=== PATIENT | female | born 1980 | race Caucasian/White ===

== ENCOUNTER 2019-07-03 15:26 | Emergency (ER) | payer MEDICAID ==
[2019-07-03] MEDS ORDERED: IV NORMAL SALINE 1,000ML 1,000 ML IV ONE (16:15)
[2019-07-03] MEDS ORDERED: ONDANSETRON PF 4 MG/2 ML VIAL. IV ONE (16:30)
[2019-07-03 16:47] VITALS: BP 125/82
[2019-07-03 17:44] LABS: BACTERIA,URINE FEW /HPF (0-FEW); BILIRUBIN,URINE NEG (NEG); CLARITY,URINE HAZY; COLOR,URINE YELLOW; GLUCOSE,URINE NEG (NEG); NITRITE,URINE NEG (NEG); RBC,URINE RARE /HPF (0-2); SQUAMOUS EPITHELIAL CELL,UR OCC /LPF; UROBILINOGEN,URINE 1 mg/dL (0.2 mg/dL); WBC,URINE OCC /HPF (0-4)
--- NOTE | 2019-07-03 17:56 | PHYS DOC ---
Past History Past Medical History: No Pertinent History (WENDY GAMBLE MD) Past Surgical History: Tubal ligation, Other Additional Past Surgical Histo: Lithotripsy (WENDY GAMBLE MD) Alcohol Use: None Drug Use: Marijuana (WENDY GAMBLE MD) Adult General Chief Complaint Chief Complaint: ABDOMINAL PAIN HPI HPI Patient is a 38-year-old female with a history of tubal ligation on Celexa hydroxyzine for anxiety presenting with chief complaint of 4 days of right lower abdominal pain radiates to the right flank she's had kidney stones before she's had 3 stones and had to be removed surgically she tells me. She is having dysuria as well as urgency she is also worried about her possible appendix she has never had that taken out no fevers that she knows of she has had nausea no definite vomiting pain is getting worse and worse since dull and pressure and also sharp radiating to the back (WENDY GAMBLE MD) Review of Systems Review of Systems Constitutional: Denies fever or chills [] Eyes: Denies change in visual acuity, redness, or eye pain [] HENT: Denies nasal congestion or sore throat [] Respiratory: Denies cough or shortness of breath [] Cardiovascular: No additional information not addressed in HPI [] GI: Denies abdominal pain, nausea, vomiting, bloody stools or diarrhea [] : Denies dysuria or hematuria [] Musculoskeletal: Denies back pain or joint pain [] Integument: Denies rash or skin lesions [] Neurologic: Denies headache, focal weakness or sensory changes [] Endocrine: Denies polyuria or polydipsia [] All other systems were reviewed and found to be within normal limits, except as documented in this note. (WENDY GAMBLE MD) Current Medications Current Medications Current Medications Medications (Trade) Dose Ordered Sig/Seema Start Time Stop Time Status Last Admin Dose Admin Fentanyl Citrate (Fentanyl 2ml Vial) 50 mcg 1X ONCE 07/03/19 16:30 07/03/19 16:31 DC 07/03/19 16:35 50 MCG Ondansetron HCl (Zofran) 4 mg 1X ONCE 07/03/19 16:30 07/03/19 16:31 DC 07/03/19 16:35 4 MG Sodium Chloride 1,000 ml @ 1,000 mls/hr 1X ONCE 07/03/19 16:15 07/03/19 17:14 DC 07/03/19 16:15 1,000 MLS/HR (WENDY GAMBLE MD) Allergies Allergies Allergies Coded Allergies Type Severity Reaction Last Updated Verified No Known Drug Allergies 07/03/19 No (WENDY GAMBLE MD) Physical Exam Physical Exam Constitutional: Well developed, well nourished, no acute distress, non-toxic appearance. [] HENT: Normocephalic, atraumatic, bilateral external ears normal, oropharynx moist, no oral exudates, nose normal. [] Eyes: PERRLA, EOMI, conjunctiva normal, no discharge. [] Neck: Normal range of motion, no tenderness, supple, no stridor. [] Cardiovascular:Heart rate regular rhythm, no murmur [] Lungs & Thorax: Bilateral breath sounds clear to auscultation [] Abdomen: Bowel sounds normal, soft, rlq tenderness wtih some mild right cva ttp, no masses, no pulsatile masses. [] Skin: Warm, dry, no erythema, no rash. Back: No tenderness, Extremities: No tenderness, no cyanosis, no clubbing, ROM intact, no edema. [] Neurologic: Alert and oriented X 3, normal motor function, normal sensory function, no focal deficits noted. [] Psychologic: Affect normal, judgement normal, mood normal. [] (WENDY GAMBLE MD) Current Patient Data Vital Signs Vital Signs Date Time Temp Pulse Resp B/P (MAP) Pulse Ox O2 Delivery O2 Flow Rate FiO2 07/03/19 16:47 97.4 77 16 99 Room Air Lab Results Laboratory Tests Test 07/03/19 17:06 Urine Collection Type Unknown Urine Color Yellow Urine Clarity Hazy Urine pH 6.5 Urine Specific [place] 1.020 Urine Protein Neg (NEG-TRACE) Urine Glucose (UA) Neg mg/dL (NEG) Urine Ketones (Stick) Neg mg/dL (NEG) Urine Blood Neg (NEG) Urine Nitrite Neg (NEG) Urine Bilirubin Neg (NEG) Urine Urobilinogen Dipstick 1 mg/dL (0.2 mg/dL) Urine Leukocyte Esterase Neg (NEG) Urine RBC Rare /HPF (0-2) Urine WBC Occ /HPF (0-4) Urine Squamous Epithelial Cells Occ /LPF Urine Bacteria Few /HPF (0-FEW) Urine Mucus Slight /LPF (WENDY GAMBLE MD) EKG EKG [] (WENDY GAMBLE MD) Radiology/Procedures Radiology/Procedures [] (WENDY GAMBLE MD) Radiology/Procedures PROCEDURE: CT ABD PELV W/ORAL&IV CONTRAST CT abdomen pelvis with contrast dated 07/03/2019. No comparison available. Clinical data indication: Right lower quadrant pain. TECHNIQUE: Contiguous axial imaging of the abdomen and pelvis performed after the administration of 75 cc Omnipaque 300. One or more of the following individualized dose reduction techniques were utilized for this examination: 1. Automated exposure control 2. Adjustment of the mA and/or kV according to patient size 3. Use of iterative reconstruction technique. FINDINGS: Limited images of lung bases are clear. Heart size within normal limits. No pleural or pericardial effusion. Liver, spleen, pancreas, adrenal glands, gallbladder and kidneys are unremarkable. No hydronephrosis. There is a suspected 3 mm calcific stone at the midpole right kidney with mild cortical scarring at the mid and lower pole. 2 mm calcific stone at the midpole left kidney. No apparent ureteral stone or hydronephrosis. Partially opacified GI tract normal in caliber and contour. No focal bowel wall thickening. No inflammatory stranding in the mesentery. Appendix is not clearly identified. No inflammatory changes in the right lower quadrant. No ascites or lymphadenopathy. Abdominal aorta normal in caliber. Images of pelvis show nondistended urinary bladder. Uterus and adnexa are unremarkable. No free fluid or lymphadenopathy. Bone windows show no acute findings. IMPRESSION: 1. No acute abnormality of abdomen or pelvis. 2. Bilateral nephrolithiasis, nonobstructive. 3. The appendix is not clearly identified. No inflammatory changes in the right lower quadrant. (JIM HARRIS DO) Course & Med Decision Making Course & Med Decision Making Pertinent Labs and Imaging studies reviewed. (See chart for details) []will need ct imaging s/o johny pending labs upreg and further evaluation at 1800. (WENDY GAMBLE MD) Course & Med Decision Making Dr. Harris's note Received patient at 1800, agree with previous H&P. Patient was given ketorolac and Levsin while in the emergency department for the continued discomfort. This did improve her pain. She was able to tolerate oral contrast, and she was transported to and from radiology with any complications. After return of laboratory and imaging findings, these were discussed with the patient voiced understanding. All questions were answered. She was discharged in improved condition. Medical decision making: There is no evidence of appendicitis, obstructing stone, pyelonephritis, obstruction, perforation, nor other significant intra- abdominal pathology. (JIM HARRIS DO) Dragon Disclaimer Dragon Disclaimer This electronic medical record was generated, in whole or in part, using a voice recognition dictation system. (WENDY GAMBLE MD) Departure Departure: Impression: Primary Impression: Right lower quadrant abdominal pain Disposition: HOME, SELF-CARE Condition: IMPROVED Referrals: PCP,UNKNOWN (PCP) Patient Instructions: Abdominal Pain Additional Instructions: Drink plenty of fluids, frequent small sips. No fatty foods, no milk, and no pepper for the next 48 hours. For the next 48 hours eat a diet rich in carbohydrates with foods such as bananas, rice, applesauce, and toast. Follow-up with your regular doctor in 2 days. If you do not have a regular doctor, list of local clinics will be provided for you. Take the medication as prescribed. Return to the ER if worsening discomfort, unable to tolerate liquids, or any other concerns. Scripts Metoclopramide Hcl (REGLAN) 10 Mg Tablet 10 MG PO QID for nausea and vomiting, #30 TAB Prov: JIM HARRIS DO 07/03/19 Meloxicam (MELOXICAM) 7.5 Mg Tablet 7.5 MG PO DAILY for PAIN, #20 TAB Prov: JIM HARRIS DO 07/03/19 Hyoscyamine Sulfate (LEVSIN) 0.125 Mg Tablet 0.125 MG PO QID for abdominal pain/cramping, #30 TAB Prov: JIM HARRIS DO 07/03/19 WENDY GAMBLE MD Jul 03, 2019 17:56 JIM HARRIS DO Jul 03, 2019 20:00
[2019-07-03 18:08] LABS: U PREG PATIENT NEGATIVE (NEG)
[2019-07-03] MEDS ORDERED: IOHEXOL 240 MG/ML 50ML VIAL. ONE (18:30)
[2019-07-03] MEDS ORDERED: IOHEXOL 300 MG/ML 75 ML VIAL. IV ONE (18:30)
[2019-07-03 18:44] LABS: BASO # 0.1 x10^3/uL (0.0-0.2); BASO % 1 % (0-3); EOS # 0.3 x10^3/uL (0.0-0.7); EOS % 4 % (0-3); HEMATOCRIT 34.6 % (36.0-47.0); HEMOGLOBIN 11.2 g/dL (12.0-15.5); LYMPH # 2.5 x10^3/uL (1.0-4.8); LYMPH % 36 % (24-48); MEAN CORPUSCULAR HEMOGLOBIN 28 pg (25-35); MEAN CORPUSCULAR HGB CONC 32 g/dL (31-37); MEAN CORPUSCULAR VOLUME 87 fL (79-100); MONO # 0.5 x10^3/uL (0.0-1.1); MONO % 8 % (0-9); NEUT # 3.7 x10^3uL (1.8-7.7); NEUT % 52 % (31-73); PLATELET COUNT 267 x10^3/uL (140-400); RED BLOOD COUNT 3.98 x10^6/uL (3.50-5.40); RED CELL DISTRIBUTION WIDTH 15.5 % (11.5-14.5); WHITE BLOOD COUNT 7.1 x10^3/uL (4.0-11.0)
[2019-07-03] MEDS ORDERED: CONTRAST GIVEN MC PRN (18:45)
[2019-07-03 18:57] LABS: ALBUMIN 2.7 g/dL (3.4-5.0); ALBUMIN/GLOBULIN RATIO 0.9 (1.0-1.7); CALCIUM 7.4 mg/dL (8.5-10.1); CREATININE 0.7 mg/dL (0.6-1.0); GFR 93.2; POTASSIUM 3.8 mmol/L (3.5-5.1); TOTAL BILIRUBIN 0.2 mg/dL (0.2-1.0); TOTAL PROTEIN 5.6 g/dL (6.4-8.2)
[2019-07-03] MEDS ORDERED: KETOROLAC 15 MG/ML VIAL. IV ONE (19:30)
[2019-07-03] MEDS ORDERED: HYOSCYAMINE 0.125 MG TAB.RAPDIS PO ONE (19:30)
--- NOTE | 2019-07-03 19:54 | RAD ---
CT abdomen pelvis with contrast dated 07/03/2019. No comparison available. Clinical data indication: Right lower quadrant pain. TECHNIQUE: Contiguous axial imaging of the abdomen and pelvis performed after the administration of 75 cc Omnipaque 300. One or more of the following individualized dose reduction techniques were utilized for this examination: 1. Automated exposure control 2. Adjustment of the mA and/or kV according to patient size 3. Use of iterative reconstruction technique. FINDINGS: Limited images of lung bases are clear. Heart size within normal limits. No pleural or pericardial effusion. Liver, spleen, pancreas, adrenal glands, gallbladder and kidneys are unremarkable. No hydronephrosis. There is a suspected 3 mm calcific stone at the midpole right kidney with mild cortical scarring at the mid and lower pole. 2 mm calcific stone at the midpole left kidney. No apparent ureteral stone or hydronephrosis. Partially opacified GI tract normal in caliber and contour. No focal bowel wall thickening. No inflammatory stranding in the mesentery. Appendix is not clearly identified. No inflammatory changes in the right lower quadrant. No ascites or lymphadenopathy. Abdominal aorta normal in caliber. Images of pelvis show nondistended urinary bladder. Uterus and adnexa are unremarkable. No free fluid or lymphadenopathy. Bone windows show no acute findings. IMPRESSION: 1. No acute abnormality of abdomen or pelvis. 2. Bilateral nephrolithiasis, nonobstructive. 3. The appendix is not clearly identified. No inflammatory changes in the right lower quadrant. Electronically signed by: Diomedes Cuba MD (07/03/2019 7:51 PM) [facility]
[2019-07-03] MEDS ORDERED: METO10TA81 PO (19:59)
[2019-07-03] MEDS ORDERED: MELO7.5T29 PO (19:59)
[2019-07-03] MEDS ORDERED: HYOS0.1264 PO (19:59)
== END 2019-07-03 20:10 | disposition home or self-care (01) ==
LOC: ER 15:26
DX: R10.31 Right lower quadrant pain (principal); R30.0 Dysuria; R39.15 Urgency of urination; Z98.51 Tubal ligation status; Z87.442 Personal history of urinary calculi
CPT/HCPCS: 36415; 74177; 80053; 81001; 81025; 83690; 85025; 96374; 96375; 99285; J1885; J2405; J3010; Q9967; J7030